=== PATIENT | male | born 1980 | race Caucasian/White ===

== ENCOUNTER 2019-06-03 10:51 | Emergency (ER) | payer SELFPAY ==
[~2019-06-03] VITALS: Ht 167.6 cm; Wt 59.4 kg
[2019-06-03 11:06] VITALS: Ht 167.6 cm; Wt 59.4 kg
[2019-06-03 11:25] VITALS: BP 142/95
== END 2019-06-03 11:25 | disposition home or self-care (01) ==
LOC: ED 10:51
DX: H72.92 Unspecified perforation of tympanic membrane, left ear (principal)